=== PATIENT | female | born 1980 | race Caucasian/White ===

== ENCOUNTER 2021-08-01 08:00 | Day surgery (SDC) | payer BC, SELFPAY ==
[~2021-08-01] VITALS: Ht 167.6 cm; Wt 108.9 kg
[2021-08-01] MEDS ORDERED: HYDROmorphone 1 MG/ML INJ. CARTRIDGE IVP PRN (13:00)
[2021-08-01] MEDS ORDERED: KETOROLAC TROMETHAMINE 30 MG VIAL IVP PRN (13:00)
[2021-08-01] MEDS ORDERED: METOCLOPRAMIDE HCL 10 MG/2 ML VIAL IVP PRN (13:00)
[2021-08-01] MEDS ORDERED: SEVOFLURANE 15 MIN GAS INH ONE (13:30)
[2021-08-01] MEDS ORDERED: MIDAZOLAM HCL 5 MG/ML VIAL (VERSED) IV ONE (13:30)
[2021-08-01] MEDS ORDERED: CEFAZOLIN 1 GM IVPB PREMIX 50 ML IV ONE (13:30)
[2021-08-01] MEDS ORDERED: NS IRRIG SOLN 1000 ML IR ONE (13:30)
[2021-08-01] MEDS ORDERED: KETOROLAC TROMETHAMINE 30 MG VIAL ONE (13:30)
[2021-08-01] MEDS ORDERED: PROPOFOL 200MG/ 20ML VIAL (DIPRIVAN) IV ONE (13:30)
[2021-08-01] MEDS ORDERED: NS 1000 ML IV.SOLN IV ONE (13:30)
[2021-08-01] MEDS ORDERED: fentaNYL CITRATE/PF 100 MCG/2 ML AMP ONE (13:30)
[2021-08-01] MEDS ORDERED: HYDROmorphone 1 MG/ML INJ. CARTRIDGE ONE (14:19)
[2021-08-01] MEDS ORDERED: OXYCODONE/ACETAMINOPHEN 5-325 TABLET PO PRN ×2 (16:00)
[2021-08-01] MEDS ORDERED: HYDROcodone/ACETAMIN 5-325 MG TAB (NORCO/ VICODIN) PO PRN (16:00)
[2021-08-01] MEDS ORDERED: ONDANSETRON HCL 4 MG/2 ML VIAL IVP PRN (16:00)
[2021-08-01 16:31] VITALS: BP_SYST 143
== END 2021-08-01 15:47 | disposition home or self-care (01) ==
LOC: SDS 08:00
PROVIDERS: ATTEND Specialist
DX: N92.1 Excessive and frequent menstruation with irregular cycle (principal); N85.01 Benign endometrial hyperplasia; E66.01 Morbid (severe) obesity due to excess calories; Z79.899 Other long term (current) drug therapy; Z68.39 Body mass index [BMI] 39.0-39.9, adult; Z20.822 Contact with and (suspected) exposure to COVID-19
CPT/HCPCS: 58558; 88305; J0690; J1170; J1885; J2250; J2704; J3010; J7030; U0003